=== PATIENT | female | born 1985 | race Caucasian/White ===

== ENCOUNTER 2024-06-21 18:14 | Emergency (ER) | payer OTHER, SELFPAY ==
[2024-06-21] MEDS: BENADRYL 25 MG IV (18:22)
[2024-06-21] MEDS: DECADRON 20 MG IV (18:23)
[2024-06-21] MEDS: NSS 1000 IV (18:23)
[2024-06-21] MEDS: PEPCID 20 MG IV (18:23)
[2024-06-21] MEDS: ADRENALIN 0.3 MG IM (18:24)
[2024-06-21 18:25] VITALS: BP 138/89
[2024-06-21] MEDS: VENTOLIN NEBULES 2.5 MG INH (18:25)
--- NOTE | 2024-06-21 18:32 | ED.GENMED ---
History of Present Illness
<CARMEN Fang - Last Filed: 06/21/24 22:11>
General
Chief Complaint: Allergic Reaction
Source: patient and spouse
Exam Limitations: none
Time Seen by Provider: 06/21/24 18:19
History of Present Illness
History of Present Illness:
This is a 38 year old female that comes in with c/o allergic reaction. States that she was on the list sip of a beer as they have a 10 month old and this was the first time that they got out. State that there was a bee in the beer and it stung her
lower lip. Patient states that she has had reactions before but never this bad. States that she took Benadryl 50mg and Advil 3 tables. States that she feels SOB, has a headache and dizziness. Denies any fever, chills, chest pain, abd pain, nausea,
vomiting, diarrhea.
Past History
<CARMEN Fang - Last Filed: 06/21/24 22:11>
Past History
ED Past Medical History: Psychiatric (Anxiety, Depression, Panic disorder) and Other (Mitral valve regurgitation, Crohn's, C-diff, )
ED Past Surgical History: None
Social History
Tobacco: Smoker
Alcohol: Occasional
Drug: Cocaine, Narcotics and IVDA
Personal:
Living: with family
Employment: Not employed
Family History
Family History: Other
Review of Systems
<CARMEN Fang - Last Filed: 06/21/24 22:11>
Review of Systems
All Other Systems: ROS reviewed and negative except as documented in HPI and ROS
Constitutional: Reports no symptoms; Denies fever or chills
EENT: Reports mouth swelling (with facial swelling)
Respiratory: Reports trouble breathing; Denies cough
Cardiac: Reports no symptoms; Denies chest pain
ABD/GI: Denies abdominal pain, nausea, vomiting or diarrhea
: Reports no symptoms
Musculoskeletal: Reports no symptoms
Skin: Reports rash (hives noted on the upper chest, lightly on the arms and lower abd. Few spots on the thighs. )
Neurological: Reports dizzy and headache
Psychiatric: Reports no symptoms
Phy Exam
<CARMEN Fang - Last Filed: 06/21/24 22:11>
General Physical Exam
General Presentation: mild distress
General age: appears stated age
General Skin: warm and dry
General Habitus: normal
General Mental: alert
General Hydration: appears well hydrated
ENT Exam
ENT Exam: TM's normal, pharynx normal, neck supple and other (Swelling of the lips and face. )
Eye Exam
Eye Exam: EOMI
Cardiovascular Exam
Cardiovascular Exam: regular rate/rhythm, no edema and normal peripheral pulses
Pulmonary Exam
Pulmonary Exam: no respiratory distress, no rales, chest non tender, no crackles, no rhonchi, no wheezing, no cough and decreased breath sounds
Gastrointestinal Exam
Gastrointestinal Exam: normal bowel sounds, non tender, soft, no organomegaly, no pulsatile mass and non distended
Musculoskeletal Exam
Musculoskeletal Exam: full ROM and no edema
Skin Exam
Skin Exam: normal color, warm/dry, no petechia and other (Rash noted on the upper chest, slightly on the arms and lower abd and upper thighs. )
Psychiatric Exam
Psychiatric Exam: normal mood/affect
Course
<CARMEN Fang - Last Filed: 06/21/24 22:11>
Orders/Labs/Results
Orders:
Orders
06/21/24 18:19
Dexamethasone Sod Phosphate [Decadron] 20 mg IV NOW STA
EPINEPHrine PF [Adrenalin] 0.3 mg IM NOW STA
Famotidine [Pepcid] 20 mg IV NOW STA
06/21/24 18:20
Diphenhydramine [Benadryl] 25 mg IV NOW STA
06/21/24 18:21
0.9% Sodium Chloride 1000 ml [Nss] 1,000 ml IV BOLUS
Albuterol Nebs [Ventolin Nebules] 2.5 mg INH R NOW STA
Vital Signs
Initial and Last Documented VS:
Initial Vital Signs
Pulse Resp Pulse Ox
91 18 100
06/21/24 18:20 06/21/24 18:20 06/21/24 18:20
Last Documented Vital Signs
Pulse Resp BP Pulse Ox
87 15 116/77 94
06/21/24 21:30 06/21/24 21:30 06/21/24 19:30 06/21/24 21:30
<Dm Camacho, DO - Last Filed: 06/21/24 22:07>
Orders/Labs/Results
Orders:
Orders
06/21/24 18:19
Dexamethasone Sod Phosphate [Decadron] 20 mg IV NOW STA
EPINEPHrine PF [Adrenalin] 0.3 mg IM NOW STA
Famotidine [Pepcid] 20 mg IV NOW STA
06/21/24 18:20
Diphenhydramine [Benadryl] 25 mg IV NOW STA
06/21/24 18:21
0.9% Sodium Chloride 1000 ml [Nss] 1,000 ml IV BOLUS
Albuterol Nebs [Ventolin Nebules] 2.5 mg INH R NOW STA
Vital Signs
Initial and Last Documented VS:
Initial Vital Signs
Pulse Resp Pulse Ox
91 18 100
06/21/24 18:20 06/21/24 18:20 06/21/24 18:20
Last Documented Vital Signs
Pulse Resp BP Pulse Ox
87 15 116/77 94
06/21/24 21:30 06/21/24 21:30 06/21/24 19:30 06/21/24 21:30
<CARMEN Fang - Last Filed: 06/21/24 22:11>
MDM/Problems Addressed
Differential Diagnosis Includes:
Allergic reaction,
MDM/Problems Addressed:
This is a 38 year old female that comes in with c/o allergic reaction due to a bee sting.
will medicate with Epi, Decadron, Pepcid, Albuterol neb, Benadryl 25mg. Patient was also seen by Dr. Valente
back into see patient. Swelling has decreased significantly. Patient states that she can swallow and her breathing is better. States that she does feel comfortable going home. Dr. Valente also feels that the patient can go home. will place on
Steroids for 5 days. patient to continue with her Pepcid daily and Benadryl as needed. Patient to return with difficulty swallowing, Breathing or any other concerns.
Chronic conditions affecting care:
history of allergic reactions
Acute Exacerbation and/or Progression of Chronic Illness:
Allergic reactions
<CARMEN Fang - Last Filed: 06/21/24 22:11>
*Pulse Oximetry
Patient hypoxic: no
*EKG
Interpreted by ED Provider?: NA
Rate: EKG- N/A
*After School Program Coordinator Interpretation
Rate: normal
Heart Rate: 83
Rhythm: sinus
*Critical Care Note
Total Time (30-74mins, 75-104mins- exclusive of procedures): Not Applicable
<Dm Camacho DO - Last Filed: 06/21/24 22:07>
*Critical Care Note
Total Time (30-74mins, 75-104mins- exclusive of procedures): 60min
comment:
The patient was seen immediately upon arrival. Epinephrine was given IM. She was also given IV medication. Her clinical status was very closely monitored. On reassessment at 10 PM, the patient is markedly improved
ED Attending Note
<CARMEN Fang - Last Filed: 06/21/24 22:11>
-
Portions of this chart may have been created with voice recognition software.� Occasional wrong word or��sound alike� substitutions may have occurred due to the inherent limitations of voice recognition software.
<Dm Camacho DO - Last Filed: 06/21/24 22:07>
ED Attending Note
Patient seen and examined by attending physician: Yes
I performed the substantive portion of visit, reviewed & personally made and approve the management plan that is documented in note by myself or ANTONIO.: Yes
I performed a history and physical exam of patient and discussed management with resident, I reviewed resident's note and agree with documented findings and plan of care.: Yes
ED Attending Note:
See critical care note
Discharge Plan
Departure
Patient Disposition: Home (Routine Discharge)
Date of Disposition: 06/21/24
Time of Disposition: 22:05
Patient with high blood pressure during this ER visit?: No
Condition: Good
Covid-19: Not Applicable
Discharge Problem:
Allergic reaction to bee sting
Instructions: Allergic Reaction ED
Prescriptions:
New
prednisone 20 mg tablet
40 mg PO DAILY Qty: 10 0RF
epinephrine [Auvi-Q] 0.3 mg/0.3 mL auto-injector
0.3 mg IM ONCE Qty: 1 0RF
No Action
acetaminophen 325 mg Tablet
650 mg PO Q4HPRN PRN (Reason: mild pain) Qty: 30 0RF
sennosides-docusate sodium [Senna Plus] 8.6-50 mg Tablet
1 tab PO DAILYPRN PRN (Reason: constipation) Qty: 10 0RF
ibuprofen 600 mg Tablet
600 mg PO Q6HPRN PRN (Reason: moderate pain/cramps) Qty: 30 0RF
buprenorphine HCl 2 mg Tablet, Sublingual
2 mg sublingual DAILY Qty: 10 0RF
Vitamin 27 mg iron- 800 mcg Tablet
1 tab PO HS Qty: 10 0RF
Referrals:
Solis Sim DO [Family Provider] - Call in 1-3 days for appt
Activity Restrictions/Additional Instructions:
As discussed, you have had a severe reaction to a bee sting. Please carry an EpiPen with you at all times. A prescription for EpiPen and steroids has been sent to your Pharmacy. Please take the steroids for the next 5 days. Continue with your Pepcid
as this helps to decrease the histamine release. You may use Benadryl 50mg for itching. Follow up with the family doctor for recheck. IF YOU HAVE ANY DIFFICULTY BREATHING, SWALLOWING OR YOU HAVE ANY OTHER CONCERNS PLEASE RETURN TO THE EMERGENCY
ROOM.
Interventions
Interventions:
*Risk Screen - Suicide Last Done: 06/21/24 18:30
*General Assessment Last Done: 06/21/24 18:30
*Neglect/Abuse Screening Last Done: 06/21/24 18:30
ED- Fall Risk Assessment Last Done: 06/21/24 18:30
*ED COVID-19 Vaccine History Last Done: 06/21/24 18:30
ED- Cardiac Assessment Last Done: 06/21/24 18:30
ED- Pulmonary Assessment Last Done: 06/21/24 18:30
ED-Skin Assessment Last Done: 06/21/24 18:30
Discharge Date and Time
Print Language: MALAY
[2024-06-21 19:15] VITALS: BP 113/68
[2024-06-21 19:30] VITALS: BP 116/77
[2024-06-21 22:02] VITALS: BP 107/90
== END 2024-06-21 22:17 | disposition home or self-care (01) ==
LOC: EMR 18:14
PROVIDERS: EMERGENCY PHYSICIAN Emergency Medicine; FAMILY PHYSICIAN Family Medicine
DX: T63.441A Toxic effect of venom of bees, accidental (unintentional), initial encounter (principal); R51.9 Headache, unspecified; R42 Dizziness and giddiness; L50.0 Allergic urticaria; R22.0 Localized swelling, mass and lump, head; R06.00 Dyspnea, unspecified; F41.0 Panic disorder [episodic paroxysmal anxiety]; I34.0 Nonrheumatic mitral (valve) insufficiency; F41.9 Anxiety disorder, unspecified; F32.A Depression, unspecified; K50.90 Crohn's disease, unspecified, without complications; F17.200 Nicotine dependence, unspecified, uncomplicated; Z91.030 Bee allergy status
CPT/HCPCS: 99284; 96374; 96375 ×2; 96361 ×2; 96372; 94640

== ENCOUNTER 2025-04-03 13:19 | Emergency (ER) | payer SELFPAY ==
[2025-04-03 13:20] VITALS: BP 146/95
--- NOTE | 2025-04-03 14:33 | ED.SKININJ ---
HPI-Injury
General
Chief Complaint: Bite
Source: patient
Time Seen by Provider: 04/03/25 14:23
History of Present Illness-Injury
Initial Injury comments:
39-year-old female was camping. Noted a questionable brown recluse spider in the window of her car. Then noted a gerhard painful to the left hand was concerned that this was a brown recluse insect bite. This occurred 2 days ago. Some mild swelling
of this area and minimal tenderness. Also itching. No other systemic complaints.
Past History
Past History
ED Past Medical History: Psychiatric (Anxiety, Depression, Panic disorder) and Other (Mitral valve regurgitation, Crohn's, C-diff, )
ED Past Surgical History: None
Social History
Tobacco: Smoker
Alcohol: Occasional
Drug: Cocaine, Narcotics and IVDA
Personal:
Living: with family
Employment: Not employed
Family History
Family History: Other
Review of Systems
Review of Systems
All Other Systems: Not applicable
Constitutional: Denies fever
Phy Exam
Physical Exam
Physical Exam:
General: Nontoxic appearing in no distress
Skin: Warm and dry, area to the left thenar area between the 1st and 2nd digit of the left hand. There is a small tiny black gerhard in the center. There is no open wound. There is no significant surrounding erythema or fluctuance
Neuro: Alert, nontoxic, grossly nonfocal
Psychiatric: Good eye contact and appropriate
Musculoskeletal: Within normal limits approximately 1 cm slightly raised papular
Course
Vital Signs
Initial and Last Documented VS:
Initial Vital Signs
Temp Pulse Resp BP Pulse Ox
98.0 F 96 20 146/95 99
04/03/25 13:20 04/03/25 13:20 04/03/25 13:20 04/03/25 13:20 04/03/25 13:20
Last Documented Vital Signs
Temp Pulse Resp BP Pulse Ox
98.0 F 96 20 146/95 99
04/03/25 13:20 04/03/25 13:20 04/03/25 13:20 04/03/25 13:20 04/03/25 13:20
MDM/Problems Addressed
Differential Diagnosis Includes:
Patient is not systemically ill and has no systemic symptoms. Highly doubt tick bite on the hand that would be long enough that she would not notice this. No obvious ECM and no systemic symptoms. Possible spider bite although not clearly.
Discussed continued observation versus antibiotic coverage. She would prefer coverage at this time. She does not tolerate Bactrim. Reasonable to use doxycycline. She is comfortable with this approach
*Pulse Oximetry
Patient hypoxic: no (99%)
*Critical Care Note
Total Time (30-74mins, 75-104mins- exclusive of procedures): Not Applicable
ED Attending Note
-
Portions of this chart may have been created with voice recognition software.� Occasional wrong word or��sound alike� substitutions may have occurred due to the inherent limitations of voice recognition software.
Discharge Plan
Departure
Patient Disposition: Home (Routine Discharge)
Date of Disposition: 04/03/25
Time of Disposition: 14:40
Patient with high blood pressure during this ER visit?: Yes
Discharge Problem:
Insect bite left hand
Instructions: Insect Bites and Stings (DC), BLOOD PRESSURE
Prescriptions:
New
doxycycline hyclate 100 mg capsule
100 mg PO BID 10 Days Qty: 20 0RF
No Action
acetaminophen 325 mg Tablet
650 mg PO Q4HPRN PRN (Reason: mild pain) Qty: 30 0RF
sennosides-docusate sodium [Senna Plus] 8.6-50 mg Tablet
1 tab PO DAILYPRN PRN (Reason: constipation) Qty: 10 0RF
ibuprofen 600 mg Tablet
600 mg PO Q6HPRN PRN (Reason: moderate pain/cramps) Qty: 30 0RF
buprenorphine HCl 2 mg Tablet, Sublingual
2 mg sublingual DAILY Qty: 10 0RF
Vitamin 27 mg iron- 800 mcg Tablet
1 tab PO HS Qty: 10 0RF
prednisone 20 mg tablet
40 mg PO DAILY Qty: 10 0RF
epinephrine [Auvi-Q] 0.3 mg/0.3 mL auto-injector
0.3 mg IM ONCE Qty: 1 0RF
Referrals:
Solis Sim DO [Family Provider, Family Practice] - Follow up in 2-3 days
Activity Restrictions/Additional Instructions:
The prescription was sent to your pharmacy
Interventions
Interventions:
*General Assessment Last Done: 04/03/25 13:20
*Nursing Disposition Last Done: 04/03/25 14:52
ED-Skin Assessment Last Done: 04/03/25 13:50
Discharge Date and Time
Discharge Date/Time: 04/03/25 14:52
Print Language: TELUGU
== END 2025-04-03 14:52 | disposition home or self-care (01) ==
LOC: EMR 13:19
PROVIDERS: EMERGENCY PHYSICIAN Emergency Medicine; FAMILY PHYSICIAN Family Medicine
DX: S60.562A Insect bite (nonvenomous) of left hand, initial encounter (principal); W57.XXXA Bitten or stung by nonvenomous insect and other nonvenomous arthropods, initial encounter; F17.200 Nicotine dependence, unspecified, uncomplicated; R03.0 Elevated blood-pressure reading, without diagnosis of hypertension
CPT/HCPCS: 99281